=== PATIENT | male | born 1965 | race Caucasian/White ===

== ENCOUNTER → 2017-04-07 | Outpatient (CLI) | payer BC ==
--- NOTE | 2017-04-07 08:49 | DIAGNOSTIC IMAGING REPORT ---
R KNEE 4 OR MORE CLINICAL HISTORY: 51 years-old Male presenting with RIGHT KNEE PAIN, right anterior knee pain at the apex of the patella started 3 weeks ago, no known injury. TECHNIQUE: Bilateral frontal views of the knees in standing position as well as sunrise, tunnel, and lateral views of the right knee were obtained. COMPARISON: None. FINDINGS: Bilateral standing views of the knees demonstrate symmetric knee joints, which are congruent. No acute fracture or malalignment. No advanced degenerative change. The patella is not subluxed. Minimal osteophytosis noted along the superior portion of the patella at the patellofemoral articulation. Flabella noted. No knee joint effusion. IMPRESSION: No acute osseous injury of the right knee. Trace degenerative change of the patellofemoral compartment. Electronically signed by: Eddie Waller M.D. 04/07/2017 8:47 AM Dictated Date/Time: 04/07/2017 8:46 AM
== END | disposition home or self-care (01) ==
LOC: C.RDSM 13:14
PROVIDERS: ATTEND Physician Assistant
DX: M25.561 Pain in right knee (principal)

== ENCOUNTER → 2017-05-20 | Outpatient (CLI) | payer OTHER ==
--- NOTE | 2017-05-20 13:13 | DIAGNOSTIC IMAGING REPORT ---
MRI OF THE RIGHT KNEE CLINICAL HISTORY: Right knee pain. COMPARISON STUDY: Radiographs of the right knee dated 04/07/2017. TECHNIQUE: MRI of the right knee was performed utilizing proton density, T1, and T2-weighted sequences in the axial, sagittal, coronal planes. IV contrast was not administered for this examination. FINDINGS: Menisci: There is increased signal identified within the posterior horn of the medial meniscus. This is not clearly extend to the articular surface and could represent substance tearing versus mucoid degeneration. The lateral meniscus is intact. Ligaments: The anterior and posterior cruciate ligaments are intact. The medial and lateral collateral ligaments are within normal limits. Extensor mechanism: The extensor mechanism is intact. Hoffa's fat pad is normal in appearance. There is mild edema within the suprapatellar fat pad. Articular cartilage and bone: There is approximately 50% thinning of the articular cartilage on the medial aspect of the patellar apex with underlying marrow edema. No full-thickness cartilage loss is identified. The cartilage of the femoral trochlea appears maintained. The articular cartilage in the medial and lateral compartments appears preserved. Normal marrow signal is otherwise preserved throughout the visualized bony structures. Joint effusion: There is trace joint fluid. Soft tissues: There is prepatellar soft tissue edema as well as soft tissue edema anterior to the popliteal tendon. The musculature surrounding the knee joint is normal in bulk and signal intensity. IMPRESSION: 1. 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 2. There is nonspecific edema identified within the suprapatellar fat. This could be seen in the setting of the quadriceps fat pad impingement syndrome. Clinical correlation will be required. 3. There is increased linear signal within the posterior horn of the medial meniscus. This does not clearly extend to the articular surface and could represent mucoid degeneration versus intrasubstance tear. 4. The lateral meniscus, the cruciate ligaments, and the collateral alignment are intact. 5. Subcutaneous soft tissue edema seen in the prepatellar region and superficial to the patellar tendon. Electronically signed by: Greg Escalante M.D. 05/20/2017 1:12 PM Dictated Date/Time: 05/20/2017 1:07 PM
== END | disposition home or self-care (01) ==
LOC: C.MRIBC 11:48
PROVIDERS: ATTEND Physician Assistant
DX: M25.561 Pain in right knee (principal)

== ENCOUNTER 2017-11-11 05:44 | Day surgery (SDC) | payer OTHER ==
[2017-10-28 15:32] VITALS: BMI 34.0
--- NOTE | 2017-10-30 09:46 | PAT Medication Instructions ---
Service Date Oct 30, 2017. Current Home Medication List Lisinopril (Zestril), 20 MG PO QAM Omeprazole (Prilosec), 40 MG PO BID Medication Instructions For Your Scheduled Surgery - Hold the following medications the morning of surgery: Lisinopril (Zestril), 20 MG PO QAM - Take the following medications the morning of surgery with a sip of water: Omeprazole (Prilosec), 40 MG PO BID - Take the following medications as scheduled the night before surgery: Omeprazole (Prilosec), 40 MG PO BID If you have any questions please call us at [phone] or [phone] or [phone]
[2017-10-30 10:05] VITALS: BMI 35.0
[2017-10-30 11:04] LABS: BASO % 0.6 %; BASO ABS # 0.03 K/uL (0-0.2); EOS ABS # 0.15 K/uL (0-0.5); HEMATOCRIT 42.4 % (42-52); HEMOGLOBIN 14.5 g/dL (14.0-18.0); IG# 0.01 K/uL (0.00-0.02); LYMPH % 35.3 %; LYMPH ABS # 1.74 K/uL (1.2-3.4); MEAN CELL VOLUME 86.2 fL (80-100); MEAN CORPUSCULAR HEMOGLOBIN 29.5 pg (25-34); MEAN CORPUSCULAR HGB CONC 34.2 g/dl (32-36); MEAN PLATELET VOLUME 11.3 fL (7.4-10.4); MONO % 7.9 %; MONO ABS # 0.39 K/uL (0.11-0.59); NEUT ABS # 2.61 K/uL (1.4-6.5); PLATELET COUNT 182 K/uL (130-400); RED CELL DISTRIBUTION WIDTH CV 13.4 % (11.5-14.5); RED CELL DISTRIBUTION WIDTH SD 42.2 fL (36.4-46.3); WHITE BLOOD COUNT 4.93 K/uL (4.8-10.8)
[2017-10-30 12:25] LABS: CREATININE 0.94 mg/dl (0.60-1.40); POTASSIUM 4.5 mmol/L (3.5-5.1)
[~2017-11-11] VITALS: Ht 175.3 cm; Wt 109.8 kg
[2017-11-11] VITALS (12 sets, daily range): BP systolic 141–168; BP diastolic 85–99; PULSE 59–82; TEMP 36.5–37; O2SAT 91–96; Ht 175.3 cm; Wt 109.8 kg
[~2017-11-11 05:44] MED LIST: LISI-725 PO; PRLSR20 PO
[2017-11-11] MEDS ORDERED: LACTATED RINGER'S 1000ML 1,000 ML IV SCH (06:00)
[2017-11-11] MEDS ORDERED: DEXAMETHASONE SOD INJ 4 MG/ML VIAL ONE (06:50)
[2017-11-11] MEDS ORDERED: PROPOFOL IV EMULSION 10 MG/ML 20 ML VIAL ONE (06:50)
[2017-11-11] MEDS ORDERED: FENTANYL CITRATE INJ 50 MCG/1 ML 2 ML VIAL ONE ×3 (06:50→12:48)
[2017-11-11] MEDS ORDERED: ONDANSETRON INJ 2 MG/ML 2 ML VIAL ONE (06:50)
[2017-11-11] MEDS ORDERED: NEOSTIGMINE METHYLSULFATE 5 MG/5 ML SYR ONE (06:50)
[2017-11-11] MEDS ORDERED: GLYCOPYRROLATE INJ 0.2 MG/ML VIAL ONE (06:50)
[2017-11-11] MEDS ORDERED: MIDAZOLAM HCL 1 MG/ML 2ML VIAL ONE (06:50)
--- NOTE | 2017-11-11 06:53 | History & Physical Bridge Note ---
H&P Re-Evaluation Bridge Note: I have examined the patient, reviewed the History & Physical and in the interval since the performance of the History & Physical I have noted the following changes of clinical significance: No changes noted
[2017-11-11] MEDS ORDERED: SODIUM CHLORIDE 0.9% PF 50 ML VIAL ONE (08:19)
[2017-11-11] MEDS ORDERED: BUPIVACAINE 0.25% 30 ML VIAL ONE (08:19)
[2017-11-11] MEDS ORDERED: BUPIVACAINE LIPOSOME 1/3% 266 MG/20 ML VIAL ONE (08:20)
[2017-11-11] MEDS ORDERED: ROCURONIUM BROMIDE 10 MG/ML 5 ML VIAL ONE (08:30)
[2017-11-11] MEDS ORDERED: CISATRACURIUM BESYLATE IV SOLN 2 MG/ML 10 ML VIAL ONE (11:08)
[2017-11-11] MEDS ORDERED: HYDROmorphone INJ 2 MG/ML SYR/VIAL ONE (11:14)
--- NOTE | 2017-11-11 11:54 | [facility] Post Operative Brief Note ---
Immediate Operative Summary Operative Date Nov 11, 2017. Pre-Operative Diagnosis Gastroesophageal Reflux Disease Hiatal Hernia Post-Operative Diagnosis Gastroesophageal Reflux Disease Hiatal Hernia Procedure(s) Performed Robotic Assisted Laparoscopic Susan Fundoplication, Esophagogastroduodenoscopy Surgeon Dr Caputo Template Reproduction Technician Surgeon(s) Niranjan Mccoy PA-C Estimated Blood Loss 50ml Findings Consistent with Post-Op Diagnosis Specimens a.gastroesophagal fat pad Anesthesia Type General
[2017-11-11] MEDS ORDERED: METOCLOPRAMIDE HCL INJ 5 MG/ML 2 ML VIAL IV. STA (12:09)
[2017-11-11] MEDS ORDERED: OXYCODONE HCL IR 5 MG TAB (IMMEDIATE RELEASE) PO PRN (12:15)
[2017-11-11] MEDS ORDERED: MoRPHine SULFATE 2 MG/ML CARP IV PRN (12:15)
[2017-11-11] MEDS ORDERED: ATROPINE SULFATE 0.1 MG/ML 5ML SYR IV PRN (13:15)
[2017-11-11] MEDS ORDERED: FENTANYL CITRATE INJ 50 MCG/1 ML 2 ML VIAL IV PRN (13:15)
[2017-11-11] MEDS ORDERED: PROMETHAZINE HCL INJ 6.25 MG in SODIUM CHLORIDE 0.9% 50ML 50 ML IV PRN (13:15)
[2017-11-11] MEDS ORDERED: HYDROmorphone INJ 0.5 MG/0.5 ML SYR IV PRN (13:15)
[2017-11-11] MEDS ORDERED: ONDANSETRON INJ 2 MG/ML 2 ML VIAL IV PRN (13:15)
[2017-11-11] MEDS ORDERED: EpHEDrine SULFATE INJ 50 MG/ML AMP IV PRN (13:15)
[2017-11-11] MEDS: KETOROLAC TROMETHAMINE 15 MG/ML VIAL IV. SCH ×2 (14:43→23:56)
[2017-11-11] MEDS: ONDANSETRON INJ 2 MG/ML 2 ML VIAL IV SCH ×3 (14:43→23:57)
[2017-11-11] MEDS: D5W AND 1/2NSS 1,000 ML IV SCH (14:44)
[2017-11-11] MEDS ORDERED: IV FLUIDS COMPLETED PRN (14:45)
--- NOTE | 2017-11-11 15:23 | OPERATIVE REPORT ---
DATE OF OPERATION: 11/11/2017 PREOPERATIVE DIAGNOSIS: Small hiatal hernia with intractable gastroesophageal reflux disease. POSTOPERATIVE DIAGNOSIS: Small hiatal hernia with intractable gastroesophageal reflux disease. PROCEDURE PERFORMED: 1. Robot-assisted laparoscopic repair of hiatal defect and reinforcement with OviTex absorbable mesh. 2. Susan fundoplication. 3. Esophagogastroscopy. SURGEON: Karel Caputo MD RELATIONS DIRECTOR: GABBIE Victor (Mr. Mccoy was present for the entire case and was at the bedside while I was at the console. He was instrumental in assisting in this case). ANESTHESIA: General anesthesia with endotracheal intubation. INDICATION FOR PROCEDURE AND FINDINGS: This is a 52-year-old male who has intractable gastroesophageal reflux disease for many years. He does not really have a significant hiatal hernia, although on the barium swallow, he was read as having a small to moderate size hernia. His biggest problem is that he has been unresponsive to medications. He was evaluated by Dr. Jovanni Murray and then sent to see me. On 11/11/2017, the patient underwent an uncomplicated repair. I was a bit surprised at the defect. I really did not expect to see much of one but he did have one and I repaired it and reinforced with OviTex absorbable mesh. We then did an uncomplicated Susan fundoplication under no tension. An upper endoscopy was performed which showed the wrap to be in good position. In addition, we insufflated air and did not see any evidence of a leak. He tolerated it well, was extubated in the room. Had negligible blood loss. PROCEDURE: The patient was brought to the operating room, laid in supine position. General anesthesia induced, endotracheal intubation was performed. After positioning him correctly and prepped and draped in usual sterile fashion and giving him appropriate prophylactic antibiotics and calling a time out, we proceeded. A 12 mm port was placed several centimeters above the umbilicus. We cut down and then used the camera inside the port to enter the peritoneal cavity. Carbon dioxide was then insufflated at 15 mmHg pressure at 15 L a minute. This filled nicely. We then put in a port at each costal margin at about the midclavicular line. These were both 8 mm ports. I also placed bilateral 5 mm ports laterally and then a 12 mm timber management assistant's port was placed just to the left of the umbilicus. The patient had a very large omentum. We had to retract this, it was a bit difficult even after we had him in extreme reverse Trendelenburg. At any rate, we were able to retract this and then the first thing I did was take down the short gastrics using the vessel sealer. We were able to separate the spleen nicely from this and then came along the left diaphragmatic crura and actually get posterior quite nicely. The stomach was then retracted to the left and the pars flaccida was identified and came down to the right hiatus without difficulty. I then completed this anteriorly quite nicely. He did not appear to have much of his stomach in the chest and a good portion of intraabdominal esophagus. We placed a 1-inch Paula drain around this and using retraction with our 5 mm arm thoracic grasper on the left, we were able to pull this down. We placed a pretzel retractor to retract the left lobe of the diaphragm away from our hiatus. I then freed this up quite nicely. I was quite pleased with the appearance. I placed a single [id number] 0 silk suture to reapproximate the crura posteriorly and then I put a single simple 0 silk. I did not make this too tight. Piece of OviTex mesh had been prepared and cut to shape. This was about 5 x 4 cm. I then put this over the repair and wrapped it around laterally and medially and sutured this in place with 2-0 silk sutures with about 8 interrupted sutures. This laid nicely and was not rubbing against the esophagus. I then marked an area 6 cm away from the gastroesophageal junction along the greater curvature and then 5 cm posteriorly well as one 5 mm anteriorly. I then pulled this posterior suture in a retroesophageal fashion and brought it up and it met the anterior fundus under no tension. A 2-0 silk was used to suture the 2 areas of the fundus, both anteriorly and posteriorly together. I then removed the Oxford drain. I then placed another 2-0 silk and incorporated the esophagus and pulled the anterior, posterior fundus together. Apparently I put 1 more suture to include the esophagus. I then placed 2 sutures to the anterior diaphragmatic crura in order to keep the patch from touching the esophagus. This laid very nicely. We then undocked the robot and I flattened the table. I then placed an esophagoscope down into the airway quite a bit into the esophagus quite easily. I went down and saw no evidence of any trauma. The gastroesophageal junction was noted and it was not too tight. In going down, I then retroflexed the esophagoscope and there was a nice hiatal repair. I then pulled this back out to the tip of the scope at the GE junction and insufflated air and we had a laparoscope and then filled the area with warm saline and there was no leaking of air. Then suctioned out the stomach and removed the esophagoscope. The two 12 mm incisions were closed with 0 PDS. This went very nicely. We had a mild amount of bleeding in the timber management assistant's port site, put another suture around. This controlled it quite nicely actually. We then closed and dressed the incisions in a running continuous fashion and placed antimicrobial dressings. He is awakened without difficulty. We had negligible blood loss. I attest to the content of the Intraoperative Record and any orders documented therein. Any exceptions are noted below. RAFY
[2017-11-11] MEDS: ACETAMINOPHEN IV 1,000 MG in EMPTY BAG 0 ML IV SCH (17:56)
[2017-11-11] MEDS ORDERED: NURSING VERBAL MED ORDER ONE (19:00)
[2017-11-11] MEDS ORDERED: LISINOPRIL 20 MG TAB PO ONE (19:00)
[2017-11-11] MEDS: PANTOprazole SOD 40 MG TAB PO SCH (20:45)
[2017-11-11] MEDS: DOCUSATE SODIUM 100 MG CAP PO SCH (20:45)
[2017-11-11] MEDS: METOCLOPRAMIDE HCL INJ 5 MG/ML 2 ML VIAL IV. SCH (21:26)
[2017-11-12] VITALS (7 sets, daily range): BP systolic 145–157; BP diastolic 85–91; PULSE 70–81; TEMP 36.7–37.3; O2SAT 90–95
[2017-11-12] MEDS: D5W AND 1/2NSS 1,000 ML IV SCH (00:06)
[2017-11-12] MEDS: ACETAMINOPHEN IV 1,000 MG in EMPTY BAG 0 ML IV SCH (02:20)
[2017-11-12] MEDS: ONDANSETRON INJ 2 MG/ML 2 ML VIAL IV SCH ×3 (03:27→11:09)
[2017-11-12] MEDS: METOCLOPRAMIDE HCL INJ 5 MG/ML 2 ML VIAL IV. SCH (06:03)
[2017-11-12] MEDS: KETOROLAC TROMETHAMINE 15 MG/ML VIAL IV. SCH (06:28)
[2017-11-12] MEDS ORDERED: TYLOTC325 PO (08:21)
--- NOTE | 2017-11-12 08:27 | Discharge Instructions ---
Discharge Instructions Date of Service Nov 12, 2017. Admission Reason for Admission: Hiatal Hernia Discharge Discharge Diagnosis / Problem: GERD Discharge Goals Goal(s): Decrease discomfort Activity Recommendations Activity Limitations: as noted below Lifting Limitations: no more than 10 pounds Shower/Bathe: may shower/bathe in 3 days 1. Do not lift objects heavier than 10 pounds until cleared to do so by Dr. Caputo. 2. Do not drive until cleared to do so by Dr. Caputo. . Instructions / Follow-Up Instructions / Follow-Up 1. Continue a liquid diet and do not advance it until Dr. Caputo instructs you to do so. 2. You may remove dressings in 3 days and shower thereafter. No tub baths. 3. Office appointment with Dr. Caputo in 1 week. Office will call you to verify date and time of appointment. Current Hospital Diet Patient's current hospital diet: Clear Liquid Diet Discharge Diet Recommended Diet: Full Liquid Diet Procedures Procedures Performed: Robotic Assisted Laparoscopic Susan Fundoplication, Esophagogastroduodenoscopy Pending Studies Studies pending at discharge: no Medical Emergencies . Who to Call and When: Medical Emergencies: If at any time you feel your situation is an emergency, please call 911 immediately. . Non-Emergent Contact Non-Emergency issues call your: Surgeon Call Non-Emergent contact if: you have a fever, your pain is not controlled, wound has increased drainage . "Provider Documentation" section prepared by Guteirrez Mccoy. .
[2017-11-12] MEDS ORDERED: ONDA4TAB10 SL (08:28)
[2017-11-12] MEDS ORDERED: ACETAMINOPHEN 325 MG TAB PO SCH (08:30)
[2017-11-12] MEDS ORDERED: ENOXAPARIN 40 MG/0.4 ML SYR SQ SCH (09:00)
[2017-11-12] MEDS ORDERED: LISINOPRIL 20 MG TAB PO SCH (09:00)
--- NOTE | 2017-11-12 09:04 | DIAGNOSTIC IMAGING REPORT ---
(BARIUM SWALLOW) ESOPHAGUS CLINICAL HISTORY: 52 years-old Male with patient is status post deven fundoplication. History of hiatal hernia. Follow-up exam. TECHNIQUE: Barium contrast and effervescent crystals were administered to the patient under fluoroscopic examination. Multiple images were obtained and submitted for review. FLUOROSCOPY TIME: 1.6 minutes. 12 total images were submitted for review. COMPARISON: Barium swallow study 10/08/2017. FINDINGS: During deglutition, contrast material flowed freely through the cervical esophagus. No filling defect or mucosal abnormality is identified. No abnormal stricturing or mass effect is seen. The mid to distal esophagus is well coated and distended. No abnormal stricturing or mucosal abnormality is identified. No significant reflux. Postoperative changes from recent Deven fundoplication without evidence of contrast extravasation to suggest mucosal injury. Contrast flows freely into the gastric lumen and from the gastric lumen into the proximal duodenum. No evidence of obstruction. IMPRESSION: Normal post operative exam with evidence of prior Deven fundoplication. The above report was generated using voice recognition software. It may contain grammatical, syntax or spelling errors. Electronically signed by: Gaurav Sawant M.D. 11/12/2017 7:51 AM Dictated Date/Time: 11/12/2017 7:49 AM
[2017-11-12] MEDS: DOCUSATE SODIUM 100 MG CAP PO SCH (09:07)
[2017-11-12] MEDS: PANTOprazole SOD 40 MG TAB PO SCH (09:07)
--- NOTE | 2017-11-12 09:32 | Anesthesiology Progress Note ---
Anesthesia Post Op Note Date & Time Nov 12, 2017 at 09:31 Vital Signs Vital Signs Past 12 Hours Date Time Temp Pulse Resp B/P (MAP) Pulse Ox O2 Delivery O2 Flow Rate FiO2 11/12/17 06:30 37.3 79 16 151/89 (109) 90 Room Air 11/12/17 06:07 92 Room Air 11/12/17 02:36 37.1 71 16 145/85 (105) 95 Nasal Cannula 2.0 11/12/17 00:33 36.7 81 16 149/86 (107) 95 Nasal Cannula 2.0 11/11/17 23:50 Nasal Cannula 2.0 11/11/17 22:33 36.7 80 18 145/87 (106) 95 Nasal Cannula 2.0 Notes Mental Status: alert / awake / arousable, participated in evaluation Pt Amnestic to Procedure: Yes Nausea / Vomiting: adequately controlled Pain: adequately controlled Airway Patency, RR, SpO2: stable & adequate BP & HR: stable & adequate Hydration State: stable & adequate Anesthetic Complications: no major complications apparent
--- NOTE | 2017-11-12 10:15 | SURGERY PROGRESS NOTE ---
DATE: 11/12/2017 Mr. Brantley was seen today. He had a robot-assisted laparoscopic Susan fundoplication yesterday. He looks quite good except he is still complaining of a bit of nausea, which may be from the anesthesia. I simply do not want this patient vomiting or being nauseated. I am going to keep him for a few more hours and check him this afternoon and may let him go. His barium swallow this morning looked great. He had no leak, and his wrap appeared to be in good position. Incidentally, he had no reflux last night.
== END 2017-11-12 13:45 | disposition home or self-care (01) ==
LOC: C.ACU 05:44 → C.MSN 12:12 → EDBEDREQ 13:16 → ENRESERV 13:18
PROVIDERS: ADMIT Surgery; ATTEND Surgery
DX: K44.9 Diaphragmatic hernia without obstruction or gangrene (principal); K21.9 Gastro-esophageal reflux disease without esophagitis; I10 Essential (primary) hypertension; E66.9 Obesity, unspecified; Z85.828 Personal history of other malignant neoplasm of skin; Z79.899 Other long term (current) drug therapy; Z87.891 Personal history of nicotine dependence; Z68.36 Body mass index [BMI] 36.0-36.9, adult
CPT/HCPCS: 43280; S2900